=== PATIENT | female | born 1955 ===

== ENCOUNTER 2024-04-28 16:25 | Emergency (ER) ==
[~2024-04-28] VITALS: Ht 162.6 cm; Wt 74.9 kg
[2024-04-28 18:29] VITALS: TEMP 98.4
[2024-04-28] MEDS ORDERED: DIF150T PO (18:29)
[2024-04-28] MEDS ORDERED: CLOT15CR73 TOP (18:29)
[2024-04-28] MEDS ORDERED: CEPH-585 PO (18:29)
[2024-04-28 18:46] VITALS: BP 173/100; PULSE 68; RESP 16; O2SAT 98
== END 2024-04-28 19:09 | disposition home or self-care (01) ==
LOC: ER 16:26
DX: L08.9 Local infection of the skin and subcutaneous tissue, unspecified (principal); Z88.8 Allergy status to other drugs, medicaments and biological substances; Z79.899 Other long term (current) drug therapy
CPT/HCPCS: 73130; 99283